=== PATIENT | male | born 1955 | race Caucasian/White ===

== ENCOUNTER 2019-07-13 12:47 | Emergency (ER) | payer MEDICARE, BC ==
[2019-07-13] MEDS ORDERED: LORazepam 0.5 MG Tab PO ONE (13:37)
--- NOTE | 2019-07-13 13:50 | EDM.PDOCBH ---
ED HPI GENERAL MEDICAL PROBLEM - General Chief Complaint: Behavioral/Psych Stated Complaint: FROM CLINIC Time Seen by Provider: 07/13/19 13:33 Source of Information: Reports: Patient, Provider, RN Notes Reviewed History Limitations: Reports: No Limitations - History of Present Illness INITIAL COMMENTS - FREE TEXT/NARRATIVE: 64-year-old gentleman presents emergency department sent over from clinic. He was initially evaluated by Dr. Delaney at the walk-in clinic. Concern for suicidal ideation since the emergency department for further evaluation. He denies any suicidal or homicidal ideation. States that he is quite anxious - Related Data Allergies Allergy/AdvReac Type Severity Reaction Status Date / Time No Known Allergies Allergy Verified 07/13/19 13:32 Home Meds: Home Meds LORazepam 0.5 mg PO TID PRN #10 tab 07/13/19 [Rx] Venlafaxine [Effexor] 25 mg PO DAILY 07/13/19 [History] Past Medical History Psychiatric History: Reports: Anxiety, Depression - Past Surgical History Musculoskeletal Surgical History: Reports: Knee Replacement, Shoulder Surgery Social & Family History - Tobacco Use Smoking Status *Q: Former Smoker ED ROS GENERAL - Review of Systems Review Of Systems: See Below Constitutional: Reports: No Symptoms Respiratory: Reports: No Symptoms Cardiovascular: Reports: No Symptoms GI/Abdominal: Reports: No Symptoms Psychiatric: Reports: Anxiety, Depression ED EXAM, BEHAVIORAL HEALTH - Physical Exam Exam: See Below Exam Limited By: No Limitations General Appearance: Alert, WD/WN, No Apparent Distress Neck: Normal Inspection, Supple, Non-Tender, Full Range of Motion Respiratory/Chest: No Respiratory Distress, Lungs Clear, Normal Breath Sounds, No Accessory Muscle Use, Chest Non-Tender Cardiovascular: Regular Rate, Rhythm, No Murmur GI/Abdominal: Soft, Non-Tender Psychiatric: Alert, Normal Affect, Normal Cognition, Oriented, Restless. No: Suicidal Plan, Suicidal Thoughts COURSE, BEHAVIORAL HEALTH COMP - Course Vital Signs: Last Vital Signs Temp 97.8 F 07/13/19 13:36 Pulse 70 07/13/19 13:36 Resp 07/13/19 13:36 BP 187/111 H 07/13/19 13:36 Pulse Ox 99 07/13/19 13:36 Orders, Labs, Meds: Medications Discontinued Medications Generic Name Dose Route Start Last Admin Trade Name Freq PRN Reason Stop Dose Admin Lorazepam 0.5 mg 07/13/19 13:37 07/13/19 13:43 Ativan PO 07/13/19 13:38 0.5 mg ONETIME ONE Administration Departure - Departure Time of Disposition: 14:35 Disposition: Home, Self-Care 01 Condition: Fair Clinical Impression: Anxiety Depressed Qualifiers: Depression Type: other depression Qualified Code(s): F32.89 - Other specified depressive episodes - Discharge Information Prescriptions: LORazepam 0.5 mg PO TID PRN #10 tab PRN Reason: Anxiety Referrals: PCP,None [Primary Care Provider] - Forms: ED Department Discharge Additional Instructions: Start your antidepressant medication that has been faxed to [facility] use the Ativan as needed for symptoms when you become overwhelmed and stressed out. Please follow-up with your primary care provider upon return home for reevaluation - Assessment/Plan Plan: Assessment Acuity = acute Site and laterality = anxiety and depression Etiology = unclear etiology Manifestations = none Location of injury = Home Lab values = none Plan Did review several options with him he is willing to try Ativan half milligram by mouth 3 times a day when necessary felt some relief from this medication while in the emergency department he also states he's going to restart his antidepressant which also has been faxed to [facility]. Recommend that he follow up with his primary care upon return home This note was dictated using [employer] voice recognition software please call with any questions on syntax or grammar.
== END 2019-07-13 14:43 | disposition home or self-care (01) ==
LOC: JP.ED 12:47
DX: F41.9 Anxiety disorder, unspecified (principal); F32.89 Other specified depressive episodes; Z87.891 Personal history of nicotine dependence; Z79.899 Other long term (current) drug therapy
CPT/HCPCS: 99283; A9270

== ENCOUNTER 2019-08-11 15:11 | Emergency (ER) | payer MEDICARE, BC ==
--- NOTE | 2019-08-11 16:10 | EDM.PDOCBH ---
ED HPI GENERAL MEDICAL PROBLEM - General Chief Complaint: Behavioral/Psych Stated Complaint: MEDICAL Time Seen by Provider: 08/11/19 15:55 Source of Information: Reports: Patient History Limitations: Reports: No Limitations - History of Present Illness INITIAL COMMENTS - FREE TEXT/NARRATIVE: pt was brought over from the clinic because he was acting so bizarre and talking about 4 things at once. Onset: Gradual Duration: Day(s): Location: Reports: Generalized, Other (pt seemes very vague and confused. ) Associated Symptoms: Reports: No Other Symptoms, Other (pt was somewhat vague. ) Left Shoulder Pain Score (Numeric/FACES): 6 - Related Data Allergies Allergy/AdvReac Type Severity Reaction Status Date / Time No Known Allergies Allergy Verified 07/13/19 13:32 Home Meds: Home Meds LORazepam 0.5 mg PO TID PRN #10 tab 07/13/19 [Rx] Venlafaxine [Effexor] 25 mg PO DAILY 07/13/19 [History] Past Medical History Psychiatric History: Reports: Anxiety, Depression Other Hematologic History: unwilling to answer Other Immunologic History: unwilling to answer - Infectious Disease History Infectious Disease History: Reports: Other (See Below) Other Infectious Disease History: unwilling to answer - Past Surgical History Other HEENT Surgeries/Procedures: pt. unwilling to answer Other Cardiovascular Surgeries/Procedures: unwilling to answer Other Respiratory Surgeries/Procedures: unwilling to answer Other GI Surgeries/Procedures: unwilling to answer Other Male Surgeries/Procedures: unwilling to answer Other Endocrine Surgeries/Procedures: unwilling to answer Other Neurological Surgeries/Procedures: unwilling to answer Musculoskeletal Surgical History: Reports: Knee Replacement, Shoulder Surgery Other Oncologic Surgeries/Procedures: unwilling to answer Social & Family History - Tobacco Use Smoking Status *Q: Never Smoker - Caffeine Use Caffeine Use: Reports: Coffee, Tea - Recreational Drug Use Recreational Drug Use: No ED ROS GENERAL - Review of Systems Review Of Systems: See Below Constitutional: Reports: No Symptoms HEENT: Reports: No Symptoms Respiratory: Reports: No Symptoms Cardiovascular: Reports: No Symptoms Endocrine: Reports: No Symptoms GI/Abdominal: Reports: No Symptoms : Reports: No Symptoms Musculoskeletal: Reports: Other ( Pt is complaining of pain in the shoulder where he had the flu shot. __left. ) Skin: Reports: No Symptoms Neurological: Reports: Other (pt was at the clinic and was very vague. ) Psychiatric: Reports: No Symptoms ED EXAM, BEHAVIORAL HEALTH - Physical Exam Exam: See Below Text/Narrative:: pt seemes very vague and he is talking about 4 things at once. He was brought over from the clinic because of his behavior. He has been very depressed which he admits . He states he is not thinking of hurting himself. He does not want to see a counselor. He does not want to consider hospitalization. Exam Limited By: Other (pt seemed agitated.) General Appearance: Alert, No Apparent Distress, Anxious, Other (pupils equal and reactiove) Ears: Normal TMs Nose: Normal Inspection Throat/Mouth: Normal Inspection Head: Atraumatic Neck: Normal Inspection Respiratory/Chest: No Respiratory Distress Cardiovascular: Regular Rate, Rhythm GI/Abdominal: Soft, Non-Tender (Male) Exam: Deferred Rectal (Males) Exam: Deferred Back Exam: Normal Inspection Extremities: Normal Inspection Neurological: Alert. No: Other (very vague with his answers difficult to know what he wants us to do to help him) Psychiatric: Alert, Flat Affect, Other (pt clearly states he is not suicidal. ) COURSE, BEHAVIORAL HEALTH COMP - Course Vital Signs: Last Vital Signs Temp 36.3 C 08/11/19 17:29 Pulse 89 08/11/19 17:29 Resp 16 08/11/19 17:29 BP 151/100 H 08/11/19 17:29 Pulse Ox 98 08/11/19 17:29 Orders, Labs, Meds: Laboratory Tests 08/11/19 08/11/19 08/11/19 Range/Units 17:55 17:55 17:55 WBC 7.3 (4.5-11.0) K/uL RBC 5.29 (4.30-5.90) M/uL Hgb 13.9 (12.0-15.0) g/dL Hct 42.8 (40.0-54.0) % MCV 81 (80-98) fL MCH 26 L (27-31) pg MCHC 33 (32-36) % Plt Count 502 H (150-400) K/uL Neut % (Auto) 58 (36-66) % Lymph % (Auto) 28 (24-44) % Emery % (Auto) 13 H (2-6) % Eos % (Auto) 1 L (2-4) % Baso % (Auto) 0 (0-1) % Sodium 136 L (140-148) mmol/L Potassium 4.2 (3.6-5.2) mmol/L Chloride 99 L (100-108) mmol/L Carbon Dioxide 26 (21-32) mmol/L Anion Gap 15.2 H (5.0-14.0) mmol/L BUN 17 (7-18) mg/dL Creatinine 0.9 (0.8-1.3) mg/dL Est Cr Clr Drug Dosing 78.54 mL/min Estimated GFR (MDRD) > 60 (>60) Glucose 99 (74-106) mg/dL Calcium 9.1 (8.5-10.1) mg/dL Total Bilirubin 0.4 (0.2-1.0) mg/dL AST 20 (15-37) U/L ALT 27 (12-78) U/L Alkaline Phosphatase 76 (46-116) U/L Total Protein 7.5 (6.4-8.2) g/dL Albumin 4.0 (3.4-5.0) g/dL Globulin 3.5 (2.3-3.5) g/dL Albumin/Globulin Ratio 1.1 L (1.2-2.2) Ethyl Alcohol < 3 mg/dL Medical Clearance: 08/11/19 18:58 pt had a normal cat scan a--of the head and normal lab work. His neighbor came in who has befriended him and tried to help him. The neighbor stated that he knows he is depressed. He wanders with his thinking and does talk about many topics. He is very difficult to follow. He felt like he was not alot different than usual. We did talk about self harm and once again he would not give a direct answer. A assembler erector from [facility] was here and stated that he would helphim and bring him back if he seemed to be getting worse. 08/18/19 18:54 Departure - Departure Time of Disposition: 18:48 Disposition: Home, Self-Care 01 Condition: Fair Clinical Impression: Depression Qualifiers: Depression Type: other depression Qualified Code(s): F32.89 - Other specified depressive episodes - Discharge Information Instructions: Major Depressive Disorder, Adult, [id number], Major Depressive Disorder, Adult Referrals: PCP,None [Primary Care Provider] - Forms: ED Department Discharge Care Plan Goals: rtc if depression gets worse. increase effexor to 25 mg --2 tabs daily. follow up with regular physian in 1 week, consider seeing a counselor.
--- NOTE | 2019-08-11 17:11 | CRLCT ---
INDICATION: Confusion COMPARISON: None available. TECHNIQUE: CT examination of the head was performed with 3 mm thick axial sections without intravenous contrast. Images were obtained from the vertex of the skull through the skull base, and I examined the images with the brain and bone windows. Please note that all CT scans at this facility use dose modulation, iterative reconstruction, and/or weight-based dosing when appropriate to reduce radiation dose to as low as reasonably achievable. FINDINGS: : The brain is normal in appearance for the patient`s age on today`s study, with no sign of mass lesion, mass effect, hemorrhage, or edema. There is mild dilatation of the ventricles and sulci representing mild, age-appropriate atrophy. There is increased dilatation of the left lateral ventricle compared to the right, within limits of normal variation. There is subtle low density in the posterior aspect of the right external capsule from an old lacunar infarct. The visualized portions of the orbits are normal in appearance. The visualized portions of the paranasal sinuses and mastoids are clear. The osseous structures are normal in their appearance with no sign of abnormality in the skull base or calvarium. IMPRESSION: Normal noncontrast CT of the head for the patient`s age. Mild, age-appropriate atrophy. Please note that all CT scans at this facility use dose modulation, iterative reconstruction, and/or weight-based dosing when appropriate to reduce radiation dose to as low as reasonably achievable. Dictated by Tito Galaviz MD @ Aug 11 2019 5:08PM Signed by Dr. Tito Galaviz @ Aug 11 2019 5:10PM
== END 2019-08-11 18:58 | disposition home or self-care (01) ==
LOC: JP.ED 15:11
DX: F32.89 Other specified depressive episodes (principal); F41.9 Anxiety disorder, unspecified; Z79.899 Other long term (current) drug therapy
CPT/HCPCS: 36415; 70450; 80053; 85025; 99283; 99285; G0480